=== PATIENT | male | born 1985 | race African-American/Black ===

== ENCOUNTER 2024-05-08 21:13 | Emergency (ER) | payer OTHER ==
[2024-05-08] MEDS ORDERED: Tranexamic Acid 1,000 MG/10 ML Vial IV ONE (21:23)
[2024-05-08] MEDS ORDERED: fentaNYL 100 MCG/2 ML SDV IVPUSH ONE (21:28)
[2024-05-08] MEDS ORDERED: Sodium Chloride 0.9% 1,000 ML IV SCH (21:28)
[2024-05-08] MEDS ORDERED: Ketamine 500 mg/10 ML MDV IV ONE (21:29)
[2024-05-08] MEDS ORDERED: Rocuronium 100 MG/10 ML MDV IVPUSH ONE (21:30)
[2024-05-08] MEDS ORDERED: Piperacillin/Tazobactam 3.375 GM in Sodium Chloride 0.9% 100 ML IV ONE (21:43)
[2024-05-08 22:44] LABS: ALANINE AMINOTRANSFERASE,ALT 262 U/L (12-78); ALBUMIN 3.1 g/dL (3.4-5.0); ALKALINE PHOSPHATASE 80 IU/L (46-116); ASPARTATE AMNIOTRANSFERASE,AST 344 U/L (15-37); BILIRUBIN TOTAL 0.5 mg/dL (0.2-1.0); BLOOD UREA NITROGEN,BUN 14 mg/dL (7-18); CALCIUM 8.3 mg/dL (8.5-10.1); CARBON DIOXIDE,CO2 19.8 mmol/L (21.0-32.0); CHLORIDE,CL 105 mmol/L (98-107); CREATININE 1.19 mg/dL (0.51-1.17); ETHANOL BLOOD MEDICAL 0.035 g/dL (0.000-0.080); GLUCOSE RANDOM 172 mg/dL (70-99); MAGNESIUM 1.9 mg/dL (1.8-2.4); PROTEIN TOTAL,TP 6.6 g/dL (6.4-8.2); SODIUM,NA 141 mmol/L (136-145)
[2024-05-08 22:46] LABS: ANION GAP 19.1 meq/L (7-15); ESTIMATED GFR 84 mL/min (>=60); POTASSIUM,K 2.9 mmol/L (3.5-5.1)
[2024-05-08 22:48] LABS: INR 1.3 (0.9-1.1); PROTHROMBIN TIME 12.7 SEC (9.0-11.1)
[2024-05-08 22:51] LABS: BASOPHILS ABSOLUTE AUTO 0.04 K/uL (0.00-0.20); BASOPHILS PERCENT AUTO 0.2 % (0.0-2.0); HEMATOCRIT 40.4 % (39.0-49.0); HEMOGLOBIN 13.7 g/dL (13.1-16.8); LYMPHOCYTES ABSOLUTE AUTO 5.49 K/uL (0.50-3.50); LYMPHOCYTES PERCENT AUTO 27.7 % (10.0-50.0); MEAN CORPUSCULAR HEMOGLOBIN 28.5 pg (28.2-33.3); MEAN CORPUSCULAR HGB CONC 33.9 g/dL (31.7-36.0); MONOCYTES ABSOLUTE AUTO 0.76 K/uL (0.00-1.00); MONOCYTES PERCENT AUTO 3.8 % (2.0-14.0); NEUTROPHILS ABSOLUTE AUTO 13.34 K/uL (1.40-7.00); NEUTROPHILS PERCENT AUTO 67.3 % (45.0-80.0); PLATELET COUNT,PLT 154 K/uL (150-350); RED BLOOD CELL COUNT 4.81 M/uL (4.33-5.41); WHITE BLOOD CELL COUNT,WBC 19.8 K/uL (4.0-10.2)
== END 2024-05-08 22:05 ==
LOC: EDBD → LL.ED 21:13 → EDBD 21:13 → LL.ED 22:05
DX: S09.90XA Unspecified injury of head, initial encounter (principal); E87.6 Hypokalemia; R41.82 Altered mental status, unspecified; V89.2XXA Person injured in unspecified motor-vehicle accident, traffic, initial encounter
CPT/HCPCS: 31500; 36415; 36430; 71045; 72170; 80053; 80307; 83605; 83735; 84484; 85025; 85610; 85730; 86850; 86900; 86901; 86920; 86922; 96365; 96368; 99291; G0390; P9016; 99284; J2543; J3010; J3490; J7030